=== PATIENT | male | born 1960 | race Caucasian/White ===

== ENCOUNTER → 2016-12-22 | Outpatient (CLI) | payer BC ==
[2016-12-22 14:09] LABS: ALT/SGPT 41 U/L (12-78); BLOOD UREA NITROGEN 11 mg/dl (7-18); BUN/CREATININE RATIO 9.7 (10-20); CALCIUM 8.9 mg/dl (8.5-10.1); CARBON DIOXIDE 25 mmol/L (21-32); CHLORIDE 104 mmol/L (98-107); CHOLESTEROL 205 mg/dl (0-200); GLUCOSE 92 mg/dl (70-99); POTASSIUM 4.1 mmol/L (3.5-5.1); SODIUM 140 mmol/L (136-145)
[2016-12-22 14:13] LABS: ALB/GLOB RATIO 1.3 (0.9-2); ALKALINE PHOSPHATASE 70 U/L (45-117); AST/SGOT 32 U/L (15-37); CHOLESTEROL/HDL RATIO 3.2; HDL CHOLESTEROL 64 mg/dl; LDL CHOLESTEROL CALCULATED 114 mg/dl; TRIGLYCERIDES 136 mg/dl (0-150); VERY LOW DENSITY LIPOPROT CALC 27 mg/dl
--- NOTE | 2017-01-20 10:02 | CODING QUERY MEDICAL NECESSITY ---
CQSUPPORTING DIAGNOSIS NEEDED A supporting diagnosis is required for the test/procedure performed on this patient in order for us to be reimbursed by the patient's insurance. Please provide a supporting diagnosis for the following test/procedure listed below next to the test name along with your signature. *If there is no additional diagnosis for this patient that would support the following test/procedure please document that below next to the test/procedure. Test(s)/Procedure(s) that require a supporting diagnosis: DOS 12/22/16 PROSTATE SPECFIC TEST (PSA) Provider Signature: Date: Thank you Maggi Moya Health Information Management Once completed, please kindly fax back to [phone] For questions please call [phone]
== END | disposition home or self-care (01) ==
LOC: C.LABPVFM 08:31
PROVIDERS: ATTEND Family Medicine
DX: Z00.00 Encounter for general adult medical examination without abnormal findings (principal); I48.91 Unspecified atrial fibrillation; Z72.0 Tobacco use; E78.5 Hyperlipidemia, unspecified; R73.9 Hyperglycemia, unspecified; Z12.5 Encounter for screening for malignant neoplasm of prostate

== ENCOUNTER → 2018-06-28 | Outpatient (CLI) | payer BC ==
[2018-06-28 13:47] LABS: ALBUMIN 4.1 gm/dl (3.4-5.0); ALKALINE PHOSPHATASE 72 U/L (45-117); ALT/SGPT 40 U/L (12-78); AST/SGOT 34 U/L (15-37); BLOOD UREA NITROGEN 10 mg/dl (7-18); CALCIUM 9.2 mg/dl (8.5-10.1); CARBON DIOXIDE 29 mmol/L (21-32); CHOLESTEROL 174 mg/dl (0-200); CREATININE 0.98 mg/dl (0.60-1.40); GLUCOSE 90 mg/dl (70-99); LDL CHOLESTEROL CALCULATED 86 mg/dl; POTASSIUM 4.3 mmol/L (3.5-5.1); SODIUM 138 mmol/L (136-145); TOTAL PROTEIN 7.1 gm/dl (6.4-8.2)
== END | disposition home or self-care (01) ==
LOC: C.LABPVFM 07:47
PROVIDERS: ATTEND Family Medicine
DX: I48.91 Unspecified atrial fibrillation (principal); E78.5 Hyperlipidemia, unspecified; R73.9 Hyperglycemia, unspecified; R60.9 Edema, unspecified

== ENCOUNTER 2022-11-07 13:08 | Inpatient (IN) ==
[2022-11-07 13:39] LABS: Basophils # (auto) 0.04 K/uL (0-0.2); Basophils % (auto) 0.5 %; Eosinophils # (auto) 0.01 K/uL (0-0.50); Eosinophils % (auto) 0.1 %; Hematocrit (blood only) 40.7 % (40.1-51.0); Hemoglobin 13.9 g/dl (14.0-18.0); Immature Granulocytes # (auto) 0.04 K/uL (0.00-0.02); Immature Granulocytes % (auto) 0.5 %; Lymphocytes # (auto) 0.76 K/uL (1.2-3.4); Mean Corpuscular Hemoglobin 31.7 pg (25.0-34.0); Mean Corpuscular Hgb Conc 34.2 g/dL (32.0-36.0); Mean Corpuscular Volume 92.9 fL (80.0-100.0); Mean Platelet Volume 10.7 fL (9.4-12.4); Monocytes # (auto) 0.72 K/uL (0.24-0.82); Monocytes % (auto) 8.5 %; Neutrophils # (auto) 6.87 K/uL (1.4-6.5); Neutrophils % (auto) 81.4 %; Platelet Count 169 K/uL (130-400); RDW Coefficient of Variation 13.4 % (11.5-14.5); RDW Standard Deviation 45.5 fL (36.4-46.3); Red Blood Count 4.38 M/uL (4.63-6.08); White Blood Count 8.44 K/ul (4.8-10.8)
[2022-11-07 13:53] LABS: INR 1.5 (0.9-1.1); Partial Thromboplastin Ratio 1.3; Partial Thromboplastin Time 35.6 Seconds (21.0-31.0); Prothrombin Time 15.2 Seconds (9.0-12.0)
[2022-11-07 14:03] LABS: Albumin Globulin Ratio 1.8 (0.9-2); Albumin Level 4.5 gm/dl (3.4-5.0); BUN Creatinine Ratio 12.8 (10-20); Bilirubin,Total 2.7 mg/dl (0.2-1.0); Calcium 9.4 mg/dl (8.5-10.1); Creatinine Clr Calc Pharmacy 107.4 ml/min; Est GFR (African American) 112.9 ml/min; Est GFR (Non-African American) 97.4 ml/min; Globulin 2.5 gm/dl (2.5-4.0); Magnesium 1.8 mg/dl (1.7-2.4)
--- NOTE | 2022-11-07 14:09 | XRay Report ---
XR chest 1V not portable CLINICAL HISTORY: SOB TECHNIQUE: Single frontal radiograph of the chest was obtained. Comparison: Comparison is made to chest radiograph 08/26/2022 FINDINGS: No lines and tubes are seen. Cardiomegaly is noted. The lungs are clear. No evidence of pleural effus ion or pneumothorax. IMPRESSION: No acute abnormalities and in particular no evidence of pneumonia. ACT 112: Negative or not required by law. Electronically signed by: Eduar Mcelroy M.D. 11/07/2022 2:07 PM
[2022-11-07] MEDS ORDERED: FUROSEMIDE 40 MG/4 ML VIAL IV STA (14:20)
--- NOTE | 2022-11-07 14:27 | Emergency Department Note ---
Impression & Plan CHF (congestive heart failure), Atrial fibrillation, Edema, pitting, Elevated troponin ED Provider Note NAME: BRODY BOYLE AGE: 61 SEX: M : 1960 ARRIVES VIA: Walk-In INFORMANT: Patient ED PROVIDER(S): Ankur Jones DO CHIEF COMPLAINT: shortness of breath HPI: Patient is a 61-year-old male who presents to the ER for shortness of breath. Patient has a history of A. fib, hyperlipidemia, TIA and vitamin D. He notes the shortness of breath has been gradually getting worse since this past August. He has been on Lasix since this past January. He notes the swelling has been getting worse in the legs and is now up into his belly. He is getting sli ghtly more short of breath. Denies any headache or change in vision. No chest pain. No belly pain but notes that he has swelling in his legs that has come up to his belly. No dysuria, urgency, or frequency. Notes he is eating and drinking normally. He has had a little bit of a less of an appetite since hernia surgery in August. ROS: See above HPI for pertinent positives & negatives. A total of 10 systems reviewed and were otherwise negative. PAST MEDICAL HISTORY:See Below PAST SURGICAL HISTORY:See Below FAMILY HISTORY:See Below SOCIAL HISTORY:See Below HOME MEDICATIONS:See Below ALLERGIES:See Below VITALS:See Below PHYSICAL EXAMINATION: GENERAL: Sitting up in bed, alert, well appearing, well nourished, no distress, non-toxic EYE EXAM: normal conjunctiva. OROPHARYNX: no exudate, no erythema, lips, buccal mucosa, and tongue normal and mucous membranes are moist NECK: +JVD LUNGS: Clear to auscultation. Normal chest wall mechanics HEART: no murmurs, S1 normal and S2 normal ABDOMEN: abdomen soft, non-tender, normo-active bowel sounds, no masses, no rebound or guarding. UPPER EXTREMITIES: upper extremities are grossly normal. LOWER EXTREMITIES: Pitting edema in the bilateral lower extremities tracking up to the abdomen NEURO EXAM: Normal sensorium, cranial nerves II-XII grossly intact, normal speech, no gross weakness of arms, no gross weakness of legs. MEDICAL DECISION MAKING: Patient is a 61-year-old male who presents ER for shortness of breath. IV was established blood was obtained. Labs show no significant leukocytosis. No anemia. INR at 1.5. BMP with mild help with a mild hyponatremia at 131. T bili up at 2.7. No significant transaminitis. Troponin elevated 24. BNP elevated at 530. Chest x-ray was clean. COVID was negative. With bilateral pitting edema tracking up to the pelvis, elevated BNP, positive troponin, posit марина JVD this is all consistent with CHF. Discussed with the patient in regards to admission. He was given Lasix. Discussed with Dr. Rogelio Pedersen for further evaluation. Triage Nursing notes reviewed. Limited review of prior medical records performed Vital Signs: reviewed and remarkable for no significant abnormalities Differential diagnosis: Reactive airway disease, pneumonia, pneumothorax, COPD, CHF, infections, cardiac ischemia, pulmonary embolism, musculoskeletal, gastrointestinal, as well as other pathologies. ER treatment provided: See below Diagnostics interpreted by me: ECG: A. fib rate of 78 Left axis T wave inversions in the high lateral leads T wave inversions in V4 through V6 No significant change from previous in the lateral leads. Atrial flutter has replaced A. fib. Cardiac Monitoring: An order was placed for continuous cardiac monitoring. The monitor shows a rate of 82 with sinus rhythm. Laboratory studies: As stated above and show below. Imaging studies: Portable AP upright 1 view of the chest unremarkable Consultation(s): Discussed with [facility]ist for further evaluation Procedures: none Critical Care: None Past Med/Surg History Medical History (Updated 11/07/22 @ 20:17 by Ankur Jones DO) Atrial fibrillation on eliquis -- follows with Dr. Canseco History of COVID-19 09/2020, not tested; loss taste/smell, fatigue>resolved. History of inguinal hernia left History of umbilical hernia Stroke "MILD STROKE" 10 YEARS AGO - no residual effects Surgical History (Updated 08/26/22 @ 11:28 by Shelley Du RN) H/O umbilical hernia repair (08/26/22) p Open Left Inguinal Hernia Repair with Mesh - Porfirio Pierre DO s Open Umbilical Hernia Repair - Porfirio Pierre DO History of colonoscopy History of herniorrhaphy ABDOMINAL HERNIA Hx of LASIK S/P left inguinal hernia repair (08/26/22) p Open Left Inguinal Hernia Repair with Mesh - Porfirio Pierre DO s Open Umbilical Hernia Repair - Porfirio Pierre DO Family History Father Myocardial infarction Cancer Colorectal cancer Mother Diabetes Family history of diabetes mellitus Denies family history of Ovarian cancer Prostate cancer Breast cancer Social History (Updated 08/06/22 @ 11:28 by Shelley Du, MICKI) Smoking Status: Former smoker Tobacco Type: Cigarettes Cigarettes Per Day: 3-4 per day; Second Hand Exposure: No; Hx Alcohol Use: Yes Alcohol type: beer Alcohol Intake Frequency: 4 or More x per/Week Alcohol Intake Frequency Comment: 3/day Hx Substance Use: No Preferred Language: Yemeni Communication Ability: Effective Supervisor [employer] Required: No Beliefs That Will Affect Care: None marital status: Current Living Situation: Spouse and Family current occupational status: employed current occupation: [employer] How many Children do You have: 1 Feels Safe at Home: Yes caffeine: No Dental Care, Regularly: Yes Physical Activity Frequency: 1-2 Times per Week Seatbelt Use: always Sunscreen Use: No Assistive Devices: Glasses Allergies Allergies Allergy/AdvReac Type Severity Reaction Status Date / Time No Known Allergies Allergy Verified 11/07/22 16:32 Home Meds Home Medications Medication Instructions Recorded Confirmed cholecalciferol (vitamin D3) 125 125 mcg PO QAM 07/31/20 11/07/22 mcg (5,000 unit) tablet (Vitamin D3) krill oil 500 mg capsule 500 mg PO QAM 07/31/20 11/07/22 Prostate Supplement 2 tabs PO HS 01/02/22 11/07/22 apixaban 5 mg tablet (Eliquis) 5 mg PO BID 11/07/22 11/07/22 Previous Rx's Medication Instructions Recorded furosemide 20 mg tablet 20 mg PO QAM PRN Edema #30 tabs 08/19/22 Results & Data (ED) Vital Signs Vital Signs - 24 hr 11/07/22 13:13 11/07/22 14:40 11/07/22 14:40 Temperature 36.5 C Temperature Source Temporal Artery Scan Pulse Rate 87 72 Pulse Rate from SpO2 Sensor Pulse Rhythm Respiratory Rate 18 18 Respiratory Effort / Characteristics Non-Labored Spontaneous Respiratory Depth Normal Respiratory Pattern Regular Blood Pressure 145/89 H 127/85 127/85 Blood Pressure Mean 107 99 99 Blood Pressure Position Sitting Pulse Oximetry 95 94 Oxygen Delivery Method Room Air Sepsis Recent Fever Within 48 Hours No Sepsis New/Unexplained Change in Mental Status N/A Sepsis Action Taken by Nursing No Action Required 11/07/22 14:40 11/07/22 15:00 11/07/22 15:00 Temperature Temperature Source Pulse Rate 75 77 Pulse Rate from SpO2 Sensor 74 81 Pulse Rhythm Respiratory Rate 19 14 Respiratory Effort / Characteristics Respiratory Depth Respiratory Pattern Blood Pressure 136/97 Blood Pressure Mean 110 Blood Pressure Position Pulse Oximetry 95 98 Oxygen Delivery Method Room Air Sepsis Recent Fever Within 48 Hours Sepsis New/Unexplained Change in Mental Status Sepsis Action Taken by Nursing 11/07/22 15:30 11/07/22 15:31 11/07/22 15:31 Temperature Temperature Source Pulse Rate 81 73 Pulse Rate from SpO2 Sensor 87 76 Pulse Rhythm Respiratory Rate 23 16 Respiratory Effort / Characteristics Respiratory Depth Respiratory Pattern Blood Pressure 111/96 Blood Pressure Mean 101 Blood Pressure Position Pulse Oximetry 95 94 Oxygen Delivery Method Room Air Room Air Sepsis Recent Fever Within 48 Hours Sepsis New/Unexplained Change in Mental Status Sepsis Action Taken by Nursing 11/07/22 16:00 11/07/22 16:01 11/07/22 16:01 Temperature Temperature Source Pulse Rate 77 77 Pulse Rate from SpO2 Sensor 76 86 Pulse Rhythm Respiratory Rate 26 H 23 Respiratory Effort / Characteristics Respiratory Depth Respiratory Pattern Blood Pressure 149/79 H Blood Pressure Mean 102 Blood Pressure Position Pulse Oximetry 95 93 Oxygen Delivery Method Room Air Room Air Sepsis Recent Fever Within 48 Hours Sepsis New/Unexplained Change in Mental Status Sepsis Action Taken by Nursing 11/07/22 16:21 11/07/22 16:22 Temperature Temperature Source Pulse Rate 81 Pulse Rate from SpO2 Sensor Pulse Rhythm Regular Respiratory Rate 20 18 Respiratory Effort / Characteristics Non-Labored Spontaneous Respiratory Depth Respiratory Pattern Blood Pressure Blood Pressure Mean Blood Pressure Position Pulse Oximetry 96 95 Oxygen Delivery Method Room Air Room Air Sepsis Recent Fever Within 48 Hours Sepsis New/Unexplained Change in Mental Status Sepsis Action Taken by Nursing Laboratory Data Result diagrams: 11/07/22 13:27 11/07/22 13:27 Lab Results 11/07/22 11/07/22 11/07/22 Range/Units 13:27 13:27 13:27 WBC 8.44 (4.8-10.8) K/ul RBC 4.38 L (4.63-6.08) M/uL Hgb 13.9 L (14.0-18.0) g/dl Hct 40.7 (40.1-51.0) % MCV 92.9 (80.0-100.0) fL MCH 31.7 (25.0-34.0) pg MCHC 34.2 (32.0-36.0) g/dL RDW Std Deviation 45.5 (36.4-46.3) fL RDW Coeff of Nolberto 13.4 (11.5-14.5) % Plt Count 169 (130-400) K/uL MPV 10.7 (9.4-12.4) fL Immature Gran % (Auto) 0.5 % Neut % (Auto) 81.4 % Lymph % (Auto) 9.0 % [place] % (Auto) 8.5 % Eos % (Auto) 0.1 % Baso % (Auto) 0.5 % Neut # (Auto) 6.87 H (1.4-6.5) K/uL Lymph # (Auto) 0.76 L (1.2-3.4) K/uL [place] # (Auto) 0.72 (0.24-0.82) K/uL Eos # (Auto) 0.01 (0-0.50) K/uL Baso # (Auto) 0.04 (0-0.2) K/uL Immature Gran # (Auto) 0.04 H (0.00-0.02) K/uL PT 15.2 H (9.0-12.0) Seconds INR 1.5 H (0.9-1.1) APTT 35.6 H (21.0-31.0) Seconds PTT Ratio 1.3 Sodium 131 L (136-145) mmol/L Potassium 4.0 (3.5-5.1) mmol/L Chloride 93 L (98-107) mmol/L Carbon Dioxide 30 (21-32) mmol/L Anion Gap 8 (3-11) BUN 10 (6-23) mg/dl Creatinine 0.78 (0.6-1.4) mg/dl Est Cr Clr Drug Dosing 107.4 ml/min Est GFR ( Amer) 112.9 ml/min Est GFR (Non-Af Amer) 97.4 ml/min BUN/Creatinine Ratio 12.8 (10-20) Glucose 99 (70-99(Fasting)) mg/dl Calcium 9.4 (8.5-10.1) mg/dl Magnesium 1.8 (1.7-2.4) mg/dl Total Bilirubin 2.7 H (0.2-1.0) mg/dl AST 47 H (13-39) U/L ALT 29 (7-52) U/L Alkaline Phosphatase 118 H (34-104) U/L Troponin I High Sens (0-20) pg/ml B-Natriuretic Peptide (0-100) pg/ml Total Protein 7.0 (6.0-8.3) gm/dl Albumin 4.5 (3.4-5.0) gm/dl Globulin 2.5 (2.5-4.0) gm/dl Albumin/Globulin Ratio 1.8 (0.9-2) SARS-CoV-2, RNA, NAAT (NEGATIVE) 11/07/22 11/07/22 11/07/22 Range/Units 13:27 14:35 16:11 WBC (4.8-10.8) K/ul RBC (4.63-6.08) M/uL Hgb (14.0-18.0) g/dl Hct (40.1-51.0) % MCV (80.0-100.0) fL MCH (25.0-34.0) pg MCHC (32.0-36.0) g/dL RDW Std Deviation (36.4-46.3) fL RDW Coeff of Nolberto (11.5-14.5) % Plt Count (130-400) K/uL MPV (9.4-12.4) fL Immature Gran % (Auto) % Neut % (Auto) % Lymph % (Auto) % [place] % (Auto) % Eos % (Auto) % Baso % (Auto) % Neut # (Auto) (1.4-6.5) K/uL Lymph # (Auto) (1.2-3.4) K/uL [place] # (Auto) (0.24-0.82) K/uL Eos # (Auto) (0-0.50) K/uL Baso # (Auto) (0-0.2) K/uL Immature Gran # (Auto) (0.00-0.02) K/uL PT (9.0-12.0) Seconds INR (0.9-1.1) APTT (21.0-31.0) Seconds PTT Ratio Sodium (136-145) mmol/L Potassium (3.5-5.1) mmol/L Chloride (98-107) mmol/L Carbon Dioxide (21-32) mmol/L Anion Gap (3-11) BUN (6-23) mg/dl Creatinine (0.6-1.4) mg/dl Est Cr Clr Drug Dosing ml/min Est GFR ( Amer) ml/min Est GFR (Non-Af Amer) ml/min BUN/Creatinine Ratio (10-20) Glucose (70-99(Fasting)) mg/dl Calcium (8.5-10.1) mg/dl Magnesium (1.7-2.4) mg/dl Total Bilirubin (0.2-1.0) mg/dl AST (13-39) U/L ALT (7-52) U/L Alkaline Phosphatase (34-104) U/L Troponin I High Sens 24.0 H (0-20) pg/ml B-Natriuretic Peptide 531 H (0-100) pg/ml Total Protein (6.0-8.3) gm/dl Albumin (3.4-5.0) gm/dl Globulin (2.5-4.0) gm/dl Albumin/Globulin Ratio (0.9-2) SARS-CoV-2, RNA, NAAT NEGATIVE (NEGATIVE) Administered Medications Furosemide (Furosemide 40 Mg/4 Ml Vial) 40 mg IV ONE ONE Stop: 11/07/22 21:01 Last Admin: 11/07/22 20:07 Dose: 40 mg Documented By: CELINA Discontinued Medications Furosemide (Furosemide 40 Mg/4 Ml Vial) 40 mg IV NOW STA Stop: 11/07/22 14:21 Last Admin: 11/07/22 14:33 Dose: 40 mg Documented By: GUERA Thiamine HCl 100 mg/ Syringe 10 mls @ 2 mls/min IV NOW STA Stop: 11/07/22 19:28 Last Admin: 11/07/22 20:07 Dose: 2 mls/min Documented By: CELINA Imaging Data Radiologist's Impression: Chest X-Ray 11/07/22 13:18 XR chest 1V not portable CLINICAL HISTORY: SOB TECHNIQUE: Single frontal radiograph of the chest was obtained. Comparison: Comparison is made to chest radiograph 08/26/2022 FINDINGS: No lines and tubes are seen. Cardiomegaly is noted. The lungs are clear. No evidence of pleural effusion or pneumothorax. IMPRESSION: No acute abnormalities and in particular no evidence of pneumonia. ACT 112: Negative or not required by law. Electronically signed by: Eduar Mcelroy M.D. 11/07/2022 2:07 PM Discharge Plan Visit Data Chief Complaint: Swelling/Edema to Extremity Stated Complaint: UPPER RESPIRATORY CONGESTION, EDEMA ABD ED Provider: Ankur Jones Discharge Problem: CHF (congestive heart failure), Atrial fibrillation, Edema, pitting, Elevated troponin Patient Disposition: Admitted As Inpatient Discharge Instructions Interventions: ED Discharge Assessment Last Done: 11/07/22 19:13
--- NOTE | 2022-11-07 16:44 | History & Physical Report ---
Date of Service November 07, 2022 Assessment & Plan (1) Elevated troponin: Plan: Patient is an elevated troponin without evidence of chest pain movement with associated dyspnea. We will check his troponin. He has not had an echocardiogram since 2020 at which time he had normal systolic function normal right ventricular function and no mention of pulmonary hypertension. Will start an aspirin get additional troponins have been progressive care unit (2) Swelling of lower extremity: Plan: Pt has b/l LE swelling worsened since inguinal hernia surgery, VTE less likely as is on ch eliquis clinically has a dull firm abd, ? ascites, does use alcohol habitually, but does not have withdrawal sx when stops intermittently LFTs not significantly abnormal bilirubin is up but AST is slightly elevated ALT is normal, INR is 1.5 could this be alcoholic liver disease with ascites? Patient has normal protein and albumin will have Abd/pelvis CT to eval liver ascites, and surgery pt also has had polyps removed at last 2 colonoscopies (3) Atrial fibrillation: Plan: afib not on rate controlling meds, on chronic anticoagulation Patient cannot sense his A. fib rate he typically is not tachycardic it would be expected if he had systolic dysfunction from rapid A. fib at home he would have pulmonary edema which he does not (4) History of TIA (transient ischemic attack): Plan: reportedly 10 years ago, no residual defects this is when he found his atrial fibrillation (5) Alcohol ingestion, more than 4 drinks/day: Plan: Patient typically has 4 beers a day occasionally skipping a day not having shakes. These are craft beers of high alcohol content usually. He does not feel this is a problem for him. We will begin him on thiamine orally Patient is elevated bilirubin mildly elevated AST and elevated INR (possible coagulopathy of alcohol use) this could all be attributed to his alcohol use. We will trend these laboratory studies begin him on vitamin therapy CT scan is pending to evaluate the appearance of his liver Plan Eliquis will be used History of Present Illness Primary Care Provider: Jerad Martinez, 61-M presents to the ER for GORMAN and LE swelling . Patient has a history of A. fib, hyperlipidemia, recent hernia repair (09/06). He notes shortness of breath has been gradually getting worse since this past August. He has been on Lasix prn since this past January. He notes the swelling has been getting worse in the legs and is now up into his belly. He is getting slightly more short of breath. Denies any headache or change in vision. No chest pain. No belly pain but notes that he has swelling in his legs that has come up to his belly. No dysuria urgency or frequency. Notes he is eating and drinking normally. He has had a little bit of a less of an appetite since hernia surgery in August. In the ER he is found to have a troponin of 24 (normal is 20, and a proBNP of 500s normal 0-100 is given 40 of Lasix in the ER. Patient does not have heart failure changes on his chest x-ray his last echocardiogram did not have evidence of diastolic dysfunction or pulmonary hypertension. Viral testing negative in the ER Allergies Allergy/AdvReac Type Severity Reaction Status Date / Time No Known Allergies Allergy Verified 11/07/22 16:32 Home Medications Medication Instructions Recorded Confirmed Type cholecalciferol (vitamin D3) 125 125 mcg PO QAM 07/31/20 11/07/22 History mcg (5,000 unit) tablet (Vitamin D3) krill oil 500 mg capsule 500 mg PO QAM 07/31/20 11/07/22 History Prostate Supplement 2 tabs PO HS 01/02/22 11/07/22 History furosemide 20 mg tablet 20 mg PO QAM PRN Edema #30 tabs 08/19/22 11/07/22 Rx apixaban 5 mg tablet (Eliquis) 5 mg PO BID 11/07/22 11/07/22 History Past Med/Surg History Medical History (Updated 11/07/22 @ 16:38 by Rogelio Rangel MD) Atrial fibrillation on eliquis -- follows with Dr. Canseco History of COVID-19 09/2020, not tested; loss taste/smell, fatigue>resolved. History of inguinal hernia left History of umbilical hernia Stroke "MILD STROKE" 10 YEARS AGO - no residual effects Surgical History (Updated 08/26/22 @ 11:28 by Shelley Du RN) H/O umbilical hernia repair (08/26/22) p Open Left Inguinal Hernia Repair with Mesh - Porfirio Pierre DO s Open Umbilical Hernia Repair - Porfirio Pierre DO History of colonoscopy History of herniorrhaphy ABDOMINAL HERNIA Hx of LASIK S/P left inguinal hernia repair (08/26/22) p Open Left Inguinal Hernia Repair with Mesh - Porfirio Pierre DO s Open Umbilical Hernia Repair - Porfirio Pierre DO Family History Father Myocardial infarction Cancer Colorectal cancer Mother Diabetes Family history of diabetes mellitus Denies family history of Ovarian cancer Prostate cancer Breast cancer Social History (Updated 08/06/22 @ 11:28 by Shelley Du RN) Smoking Status: Former smoker Tobacco Type: Cigarettes Cigarettes Per Day: 3-4 per day; Second Hand Exposure: No; Hx Alcohol Use: Yes Alcohol type: beer Alcohol Intake Frequency: 4 or More x per/Week Alcohol Intake Frequency Comment: 3/day Hx Substance Use: No Preferred Language: Macanese Communication Ability: Effective Butane Compressor Operator Required: No Beliefs That Will Affect Care: None marital status: Current Living Situation: Spouse and Family current occupational status: employed current occupation: [employer] How many Children do You have: 1 Feels Safe at Home: Yes caffeine: No Dental Care, Regularly: Yes Physical Activity Frequency: 1-2 Times per Week Seatbelt Use: always Sunscreen Use: No Assistive Devices: Glasses Review of Systems Review of Systems: Mild distress and worsening fatigue no headache, no visual changes no speech or swallowing issues no chest pain, pressure or palpitations, pt cannot sense afib worsening exertional shortness of breath, no cough or wheezes no abdominal pain, nausea or vomiting, increasing distention recent change in stool habits no dysuria, hematuria or frequency no focal joint pain or swelling no back pain, CVA tenderness or radicular pain no bruising, bleeding or rashes no focal signs of weakness or numbness or altered sensation no complaints of anxiety or depression.. Physical Exam Physical Exam: The patient appeared well nourished and normally developed. Vital signs as documented. Head exam is normocephalic atraumatic Neck is without JVD, thyromegaly, or carotid bruits. Lungs are clear to auscultation, no focal loss of breath sounds Cardiac exam, Rhythm is irregular but rate controlled, no murmurs, rubs or gallops. Abdominal exam reveals normal bowel sounds distended dull sensation of ascites no organomegaly Extremities are 2+ edema bilaterally to the mid thighs Neurologic exam is alert and oriented, no focal loss of strength or sensation Skin is without bruises or rashes some redness to his lower extremities but no stasis dermatitis at this point Psychologically is without concerns for anxiety or depression.. Results & Data Results & Data ([facility]) Vital Signs (Past 12 Hours) Vital Signs Temp Pulse Resp BP Pulse Ox O2 Del Method 11/07/22 16:22 81 18 95 Room Air 11/07/22 16:21 20 96 Room Air 11/07/22 16:01 149/79 H 11/07/22 16:01 77 23 93 Room Air 11/07/22 16:00 77 26 H 95 Room Air 11/07/22 15:31 73 16 94 Room Air 11/07/22 15:31 111/96 11/07/22 15:30 81 23 95 Room Air 11/07/22 15:00 77 14 98 Room Air 11/07/22 15:00 136/97 11/07/22 14:40 75 19 95 11/07/22 14:40 127/85 11/07/22 14:40 72 18 127/85 94 11/07/22 13:13 97.7 F 87 18 145/89 H 95 Room Air Diagnostic Findings Chest X-Ray 11/07/22 13:18 XR chest 1V not portable CLINICAL HISTORY: SOB TECHNIQUE: Single frontal radiograph of the chest was obtained. Comparison: Comparison is made to chest radiograph 08/26/2022 FINDINGS: No lines and tubes are seen. Cardiomegaly is noted. The lungs are clear. No evidence of pleural effusion or pneumothorax. IMPRESSION: No acute abnormalities and in particular no evidence of pneumonia. Electronically signed by: Eduar Mcelroy M.D. 11/07/2022 2:07 PM ECG Additional Comments: A. fib controlled ventricular rate Code Status & VTE Plan VTE Prophylaxis Plan VTE Prophylaxis will be ordered: Yes PG Care Time/CCT Total # of Minutes Spent Total Time Spent with Patient: Total time spent is greater than 50% in coordination of care (as documented) at patient's floor/unit and/or counseling patient: Coding Level of Care Code 31976 Initial Inpt Care Lvl 3 Diagnoses Elevated troponin R77.8 Swelling of lower extremity M79.89 Atrial fibrillation I48.91 History of TIA (transient ischemic attack) Z86.73 Alcohol ingestion, more than 4 drinks/day Z78.9
[2022-11-07] MEDS ORDERED: ALUMINUM/MAGNESIUM SUSP 30 ML UDC PO PRN (19:24)
[2022-11-07] MEDS ORDERED: THIAMINE HCL 100 MG in SYRINGE 9 ML IV STA (19:24)
[2022-11-07] MEDS ORDERED: ENOXAPARIN INJ 40 MG/0.4 ML SYR SQ SCH (19:24)
[2022-11-07] MEDS ORDERED: ONDANSETRON INJ 2 MG/ML 2 ML VIAL IV PRN (19:24)
[2022-11-07] MEDS ORDERED: ACETAMINOPHEN 325 MG TAB PO PRN (19:24)
[2022-11-07] MEDS ORDERED: FUROSEMIDE 40 MG/4 ML VIAL IV ONE (21:00)
[2022-11-07] MEDS ORDERED: OPTIRAY 350 100ml IV ONE (22:18)
[2022-11-08] MEDS ORDERED: guaiFENesin 600 MG TABCR PO PRN (06:10)
[2022-11-08 06:52] LABS: Hematocrit (blood only) 37.3 % (40.1-51.0); Hemoglobin 13.2 g/dl (14.0-18.0); Mean Corpuscular Hemoglobin 31.9 pg (25.0-34.0); Mean Corpuscular Hgb Conc 35.4 g/dL (32.0-36.0); Mean Corpuscular Volume 90.1 fL (80.0-100.0); Platelet Count 157 K/uL (130-400); RDW Coefficient of Variation 13.3 % (11.5-14.5); RDW Standard Deviation 44.2 fL (36.4-46.3); Red Blood Count 4.14 M/uL (4.63-6.08)
[2022-11-08 07:10] LABS: INR 1.4 (0.9-1.1); Prothrombin Time 14.2 Seconds (9.0-12.0)
--- NOTE | 2022-11-08 07:18 | Electrocardiogram Report ---
Test Reason : Blood Pressure : / mmHG Vent. Rate : 078 BPM Atrial Rate : 288 BPM P-R Int : 000 ms QRS Dur : 094 ms QT Int : 432 ms P-R-T Axes : 000 -37 175 degrees QTc Int : 492 ms Atrial fibrillation Left axis deviation Low voltage QRS T wave abnormality, consider anterolateral ischemia Prolonged QT Abnormal ECG When compared with ECG of 06-AUG-2022 11:26, Atrial fibrillation has replaced Atrial flutter Confirmed by Alen Sexton ([id number]) on 11/08/2022 7:18:10 AM Referred By: REFERRED SELF Confirmed By:Alen Sexton
[2022-11-08 07:21] LABS: Albumin Globulin Ratio 1.8 (0.9-2); Albumin Level 4.2 gm/dl (3.4-5.0); BUN Creatinine Ratio 14.1 (10-20); Bilirubin,Total 2.2 mg/dl (0.2-1.0); Calcium 8.7 mg/dl (8.5-10.1); Creatinine Clr Calc Pharmacy 115.9 ml/min; Est GFR (African American) 117.4 ml/min; Est GFR (Non-African American) 101.3 ml/min; Globulin 2.3 gm/dl (2.5-4.0); Magnesium 1.7 mg/dl (1.7-2.4); Potassium 3.3 mmol/L (3.5-5.1); Total Protein 6.5 gm/dl (6.0-8.3)
[2022-11-08 07:25] LABS: Troponin I High Sensitivity 27.8 pg/ml (0-20)
[2022-11-08] MEDS: ASPIRIN 81 MG ECTAB PO SCH (08:07)
[2022-11-08] MEDS: CHOLECALCIFEROL 5,000 UNITS 125 MCG TAB PO SCH (08:07)
[2022-11-08] MEDS: THIAMINE HCL 100 MG TAB PO SCH (08:07)
--- NOTE | 2022-11-08 08:07 | Hospitalist Progress Note ---
Date of Service November 08, 2022 Assessment & Plan (1) Elevated troponin: Plan: Admitted for progressive shortness of breath over the past couple of weeks, worse in August Of note, had been started on daily lasix 20mg PO by cardiology for LE edema earlier in year, also unaware of low salt diet BNP 500s Elevated troponin 24--> 26.5--? 27.8--> 25.6 Given lasix 40mg IV x 2 on 11/07 (on 20mg PO daily at home) K 3.3, Mag 1.7 -- given afib, given 40meq PO x 1, can given additional dose tonight. 1gm mag -- ?if on any K supplementation at home but appears not ECHO: LV is normal in size. There is mild concentric LVH. LV systolic function is low normal. EF 50-55%. LV wall motion is normal. Flattened septum consistent with RV pressure overload. RV is severely dilated. Although TAPSE is normal, RV free wall appears hypokinetic. LA/RA severely dilated. Aortic valve sclerosis mild, without significant aortic valvular stenosis. Mild to moderate AR. Mod TR. Severe pulmonary HTN with estimated pulmonary artery pressure 65mmHg. HFpEF, combination salt intake/cirrhosis/alcohol use Scheduled lasix 20mg IV BID, also consulted cardiology given patient w/ increased abdominal fullness/edema and continues 2+ b/l edema (however note cirrhosis as below, also weight UP from when started lasix) plan for CHF f/u as well, low salt diet. will add fluid restriction as well pending course Eliquis resumed, no plans for cath Discussed with Dr Arzate possible switch to torsemide vs addition of spironolactone given cirrhosis/abd fullness /tight pants reported --> started spironolactone 25mg daily (should also help with hypokalemia as well) CTAP on admit w/ Moderately nodular contour of the liver compatible with cirrhosis. Moderate ascites is seen. The portal vein remains patent and no pr ominent variceal disease is seen-- does endorse 3-4 craft beers daily. WILL NEED COUNSELING as well as GI f/u outpatient for screening purposes, no bleeding reported Admitted to overnight team on admit he drinks 3-4 beers daily, no issues when stopping. B12 already added to AM labs but will check folate as well. On thiamine replacement (2) Swelling of lower extremity: Plan: Reported since , seen cards and placed on lasix 20mg PO daily w/o K supplementation Progressive LE edema On eliquis, no evidence for DVT on exam AST slightly bumped, reports etoh use Scheduled lasix 20mg IV BID for now, added aldactone daily. Need f/u cirrhosis. Albumin is NORMAL. Has had c-scope in past -- will need f/u GI at d/c Monitor I&O, daily weights (3) Atrial fibrillation: Plan: fib/flutter, no on rate controlling agent Afib/flutter rates 70-80s on monitor. No significant reduction in EF to suspect tachycardia induced Keep K ~2, Mag ~2 -- see above On eliquis at home -- resumed as no plans for cath Monitor on telemetry (4) History of TIA (transient ischemic attack): Plan: reportedly 10 years ago, no residual defects this is when he found his atrial fibrillation Remains on ASA 81mg daily (5) Alcohol ingestion, more than 4 drinks/day: Plan: Patient typically has 4 beers a day occasionally skipping a day not having shakes. These are craft beers of high alcohol content usually. He does not feel this is a problem for him. We will begin him on thiamine orally Patient is elevated bilirubin mildly elevated AST and elevated INR (possible coagulopathy of alcohol use) this could all be attributed to his alcohol use. CTAP on admit w/ cirrhosis, mod ascites (reported increased abd fullness/pants fitting tighter) Lasix increased to 20mg IV BID, added aldactone as above -- further titrations as able Check B12/folate w/ labs in AM Will need counseling/GI follow up at d/c Plan continued inpatient stay increased lasix to 20mg IV BID, aldactone ordered 25mg daily cards on consult rec low salt diet/follow up CHF clinic with close monitoring of labs this week if patient to dc tomorrow Will also need GI f/u given cirrhosis, encourage limiting/cessation from alcohol Admission and Anticipated Discharge Date Admission Date: November 07, 2022 Supervising Physician Co-Signing Physician Notes PA Supervision Note: I did not personally see or examine the patient today, but I verified all morales points of WANDA Gonzalez's assessment and plan with the following exceptions/additions: None Subjective eval this morning, states he feels good. making lots of urine w/ IV lasix. He notes having been placed on this earlier this year for LE edema but that he has also noticed increased abdominal fullness/pants fitting tighter. No on PO Kcl supplementation with his lasix at home, discussed monitoring/replacement and will schedule IV BID lasix for now but if coming up with good regimen/labs stable could potentially d/c tomorrow on regimen w/ close follow up on labs/CHF clinic. He does not note having any education on low salt diet -- discussed and enco uraged closer monitoring as weights appear higher than they did when placed on the lasix, likely from holidays/dietary indiscretion. No fever/chills, chest pain, no nausea or vomiting. Questions/concerns addressed at this time. Review of Systems Review of Systems: All systems reviewed & are unremarkable except as noted in HPI & below Physical Exam Physical Exam: General: WD/WN male sitting up in bed changing his socks, NAD HEENT: head normocephalic, atraumatic, mmm, trachea midline, +JVD Resp: CTAB, diminished in the bases, no w/c, on room air CV: irregularly irregular (rates 70-90s), +murmur, 2+ pitting edema b/l LE, pulses palpable, calves nontender GI: +BS, +distended, +ascites, nontender, no guarding/rigidity : no wilkes MSK/Neuro: no focal deficit, no slurred speech or facial droop, follows commands Psych: AOx3, pleasant and cooperative Skin: warm, dry, chronic venous stasis b/l LE Results & Data Results & Data ([facility]) Vital Signs (Past 12 Hours) Vital Signs Temp Pulse Pulse Resp BP Pulse Ox O2 Del Method 11/08/22 07:31 36.8 C 80 18 119/67 92 Room Air 11/08/22 03:32 36.8 C 71 18 121/79 97 Room Air 11/07/22 22:50 101 H 11/07/22 22:25 36.6 C 72 18 121/95 97 Room Air Laboratory Results 11/08/22 11/08/22 11/08/22 Range/Units 06:29 06:29 06:29 WBC 8.40 (4.8-10.8) K/ul RBC 4.14 L (4.63-6.08) M/uL Hgb 13.2 L (14.0-18.0) g/dl Hct 37.3 L (40.1-51.0) % MCV 90.1 (80.0-100.0) fL MCH 31.9 (25.0-34.0) pg MCHC 35.4 (32.0-36.0) g/dL RDW Std Deviation 44.2 (36.4-46.3) fL RDW Coeff of Nolberto 13.3 (11.5-14.5) % Plt Count 157 (130-400) K/uL MPV 11.0 (9.4-12.4) fL Immature Gran % (Auto) % Neut % (Auto) % Lymph % (Auto) % [place] % (Auto) % Eos % (Auto) % Baso % (Auto) % Neut # (Auto) (1.4-6.5) K/uL Lymph # (Auto) (1.2-3.4) K/uL [place] # (Auto) (0.24-0.82) K/uL Eos # (Auto) (0-0.50) K/uL Baso # (Auto) (0-0.2) K/uL Immature Gran # (Auto) (0.00-0.02) K/uL PT 14.2 H (9.0-12.0) Seconds INR 1.4 H (0.9-1.1) APTT (21.0-31.0) Seconds PTT Ratio Sodium 133 L (136-145) mmol/L Potassium 3.3 L (3.5-5.1) mmol/L Chloride 94 L (98-107) mmol/L Carbon Dioxide 29 (21-32) mmol/L Anion Gap 10 (3-11) BUN 10 (6-23) mg/dl Creatinine 0.71 (0.6-1.4) mg/dl Est Cr Clr Drug Dosing 115.9 ml/min Est GFR ( Amer) 117.4 ml/min Est GFR (Non-Af Amer) 101.3 ml/min BUN/Creatinine Ratio 14.1 (10-20) Glucose 91 (70-99(Fasting)) mg/dl Calcium 8.7 (8.5-10.1) mg/dl Magnesium 1.7 (1.7-2.4) mg/dl Total Bilirubin 2.2 H (0.2-1.0) mg/dl AST 45 H (13-39) U/L ALT 27 (7-52) U/L Alkaline Phosphatase 112 H (34-104) U/L Troponin I High Sens 27.8 H (0-20) pg/ml B-Natriuretic Peptide (0-100) pg/ml Total Protein 6.5 (6.0-8.3) gm/dl Albumin 4.2 (3.4-5.0) gm/dl Globulin 2.3 L (2.5-4.0) gm/dl Albumin/Globulin Ratio 1.8 (0.9-2) SARS-CoV-2, RNA, NAAT (NEGATIVE) 11/07/22 11/07/22 11/07/22 Range/Units 21:37 16:11 14:35 WBC (4.8-10.8) K/ul RBC (4.63-6.08) M/uL Hgb (14.0-18.0) g/dl Hct (40.1-51.0) % MCV (80.0-100.0) fL MCH (25.0-34.0) pg MCHC (32.0-36.0) g/dL RDW Std Deviation (36.4-46.3) fL RDW Coeff of Nolberto (11.5-14.5) % Plt Count (130-400) K/uL MPV (9.4-12.4) fL Immature Gran % (Auto) % Neut % (Auto) % Lymph % (Auto) % [place] % (Auto) % Eos % (Auto) % Baso % (Auto) % Neut # (Auto) (1.4-6.5) K/uL Lymph # (Auto) (1.2-3.4) K/uL [place] # (Auto) (0.24-0.82) K/uL Eos # (Auto) (0-0.50) K/uL Baso # (Auto) (0-0.2) K/uL Immature Gran # (Auto) (0.00-0.02) K/uL PT (9.0-12.0) Seconds INR (0.9-1.1) APTT (21.0-31.0) Seconds PTT Ratio Sodium (136-145) mmol/L Potassium (3.5-5.1) mmol/L Chloride (98-107) mmol/L Carbon Dioxide (21-32) mmol/L Anion Gap (3-11) BUN (6-23) mg/dl Creatinine (0.6-1.4) mg/dl Est Cr Clr Drug Dosing ml/min Est GFR ( Amer) ml/min Est GFR (Non-Af Amer) ml/min BUN/Creatinine Ratio (10-20) Glucose (70-99(Fasting)) mg/dl Calcium (8.5-10.1) mg/dl Magnesium (1.7-2.4) mg/dl Total Bilirubin (0.2-1.0) mg/dl AST (13-39) U/L ALT (7-52) U/L Alkaline Phosphatase (34-104) U/L Troponin I High Sens 26.5 H (0-20) pg/ml B-Natriuretic Peptide 531 H (0-100) pg/ml Total Protein (6.0-8.3) gm/dl Albumin (3.4-5.0) gm/dl Globulin (2.5-4.0) gm/dl Albumin/Globulin Ratio (0.9-2) SARS-CoV-2, RNA, NAAT NEGATIVE (NEGATIVE) 11/07/22 11/07/22 11/07/22 Range/Units 13:27 13:27 13:27 WBC (4.8-10.8) K/ul RBC (4.63-6.08) M/uL Hgb (14.0-18.0) g/dl Hct (40.1-51.0) % MCV (80.0-100.0) fL MCH (25.0-34.0) pg MCHC (32.0-36.0) g/dL RDW Std Deviation (36.4-46.3) fL RDW Coeff of Nolberto (11.5-14.5) % Plt Count (130-400) K/uL MPV (9.4-12.4) fL Immature Gran % (Auto) % Neut % (Auto) % Lymph % (Auto) % [place] % (Auto) % Eos % (Auto) % Baso % (Auto) % Neut # (Auto) (1.4-6.5) K/uL Lymph # (Auto) (1.2-3.4) K/uL [place] # (Auto) (0.24-0.82) K/uL Eos # (Auto) (0-0.50) K/uL Baso # (Auto) (0-0.2) K/uL Immature Gran # (Auto) (0.00-0.02) K/uL PT 15.2 H (9.0-12.0) Seconds INR 1.5 H (0.9-1.1) APTT 35.6 H (21.0-31.0) Seconds PTT Ratio 1.3 Sodium 131 L (136-145) mmol/L Potassium 4.0 (3.5-5.1) mmol/L Chloride 93 L (98-107) mmol/L Carbon Dioxide 30 (21-32) mmol/L Anion Gap 8 (3-11) BUN 10 (6-23) mg/dl Creatinine 0.78 (0.6-1.4) mg/dl Est Cr Clr Drug Dosing 107.4 ml/min Est GFR ( Amer) 112.9 ml/min Est GFR (Non-Af Amer) 97.4 ml/min BUN/Creatinine Ratio 12.8 (10-20) Glucose 99 (70-99(Fasting)) mg/dl Calcium 9.4 (8.5-10.1) mg/dl Magnesium 1.8 (1.7-2.4) mg/dl Total Bilirubin 2.7 H (0.2-1.0) mg/dl AST 47 H (13-39) U/L ALT 29 (7-52) U/L Alkaline Phosphatase 118 H (34-104) U/L Troponin I High Sens 24.0 H (0-20) pg/ml B-Natriuretic Peptide (0-100) pg/ml Total Protein 7.0 (6.0-8.3) gm/dl Albumin 4.5 (3.4-5.0) gm/dl Globulin 2.5 (2.5-4.0) gm/dl Albumin/Globulin Ratio 1.8 (0.9-2) SARS-CoV-2, RNA, NAAT (NEGATIVE) 11/07/22 Range/Units 13:27 WBC 8.44 (4.8-10.8) K/ul RBC 4.38 L (4.63-6.08) M/uL Hgb 13.9 L (14.0-18.0) g/dl Hct 40.7 (40.1-51.0) % MCV 92.9 (80.0-100.0) fL MCH 31.7 (25.0-34.0) pg MCHC 34.2 (32.0-36.0) g/dL RDW Std Deviation 45.5 (36.4-46.3) fL RDW Coeff of Nolberto 13.4 (11.5-14.5) % Plt Count 169 (130-400) K/uL MPV 10.7 (9.4-12.4) fL Immature Gran % (Auto) 0.5 % Neut % (Auto) 81.4 % Lymph % (Auto) 9.0 % [place] % (Auto) 8.5 % Eos % (Auto) 0.1 % Baso % (Auto) 0.5 % Neut # (Auto) 6.87 H (1.4-6.5) K/uL Lymph # (Auto) 0.76 L (1.2-3.4) K/uL [place] # (Auto) 0.72 (0.24-0.82) K/uL Eos # (Auto) 0.01 (0-0.50) K/uL Baso # (Auto) 0.04 (0-0.2) K/uL Immature Gran # (Auto) 0.04 H (0.00-0.02) K/uL PT (9.0-12.0) Seconds INR (0.9-1.1) APTT (21.0-31.0) Seconds PTT Ratio Sodium (136-145) mmol/L Potassium (3.5-5.1) mmol/L Chloride (98-107) mmol/L Carbon Dioxide (21-32) mmol/L Anion Gap (3-11) BUN (6-23) mg/dl Creatinine (0.6-1.4) mg/dl Est Cr Clr Drug Dosing ml/min Est GFR ( Amer) ml/min Est GFR (Non-Af Amer) ml/min BUN/Creatinine Ratio (10-20) Glucose (70-99(Fasting)) mg/dl Calcium (8.5-10.1) mg/dl Magnesium (1.7-2.4) mg/dl Total Bilirubin (0.2-1.0) mg/dl AST (13-39) U/L ALT (7-52) U/L Alkaline Phosphatase (34-104) U/L Troponin I High Sens (0-20) pg/ml B-Natriuretic Peptide (0-100) pg/ml Total Protein (6.0-8.3) gm/dl Albumin (3.4-5.0) gm/dl Globulin (2.5-4.0) gm/dl Albumin/Globulin Ratio (0.9-2) SARS-CoV-2, RNA, NAAT (NEGATIVE) Diagnostic Findings Chest X-Ray 11/07/22 13:18 XR chest 1V not portable CLINICAL HISTORY: SOB TECHNIQUE: Single frontal radiograph of the chest was obtained. Comparison: Comparison is made to chest radiograph 08/26/2022 FINDINGS: No lines and tubes are seen. Cardiomegaly is noted. The lungs are clear. No evidence of pleural effusion or pneumothorax. IMPRESSION: No acute abnormalities and in particular no evidence of pneumonia. ACT 112: Negative or not required by law. Electronically signed by: Eduar Mcelroy M.D. 11/07/2022 2:07 PM 11/08/22 ECHOCARDIOGRAM LV is normal in size. There is mild concentric LVH. LV systolic function is low normal. EF 50-55%. LV wall morion is normal. Flattened septum consistent with RV pressure overload. RV is severely dilated. Although TAPSE is normal, RV free wall appears hypokinetic. LA/RA severely dilated. Aortic valve sclerosis mild, without significant aortic valvular stenosis. Mild to moderate AR. Mod TR. Severe pulmonary HTN with estimated pulmonary artery pressure 65mmHg. PG Care Time/CCT Total # of Minutes Spent Total Time Spent with Patient: Total time spent is greater than 50% in coordination of care (as documented) at patient's floor/unit and/or counseling patient: Coding Level of Care Code 10864 Subseq Hosp Care Lvl 3 Diagnoses Elevated troponin R77.8 Swelling of lower extremity M79.89 Atrial fibrillation I48.91 History of TIA (transient ischemic attack) Z86.73 Alcohol ingestion, more than 4 drinks/day Z78.9
[2022-11-08] MEDS ORDERED: POTASSIUM CHLORIDE CRTAB 20 MEQ TABCR PO STA (08:08)
[2022-11-08] MEDS ORDERED: FUROSEMIDE INJ 20 MG/2 ML VIAL IV ONE (08:08)
[2022-11-08] MEDS ORDERED: MAGNESIUM SULFATE / D5W 1 GM/100 ML BAG IV ONE (08:08)
[2022-11-08] MEDS ORDERED: ASPIRIN 81 MG CHEW PO SCH (09:00)
[2022-11-08 09:06] LABS: Iron 52 mcg/dl (35-175); Total Iron Binding Cap Calc 379 mcg/dl (250-450); Transferrin (FE) Percent Satur 14 % (20-50); Unsaturated Iron Binding Cap 327 mcg/dl (155-355)
--- NOTE | 2022-11-08 09:11 | CT Scan Report ---
CT abd pelvis oral and IV con CLINICAL HISTORY: eval ascites, le swelling hepatic veins TECHNIQUE: Helical axial images of the abdomen and pelvis were obtained and displayed. Automated dose lowering techniques and/or adjustment according to patient size were utilized for this exam. This e xam was performed with intravenous contrast. CT DOSE: 512.87 mGy.cm COMPARISON: None available at the time of this dictation. FINDINGS: Lower chest: Right pleural effusion is seen. Interstitial septal thickening is partially visualized. Liver: Subcentimeter hypodensities in the liver are too small to characterize. There is moderately no dular contour of the liver. Gallbladder and biliary tree: No calcified gallstones. Normal caliber wall. No intra- or extrahepatic biliary ductal dilation. Pancreas: Unremarkable, no focal lesions. Spleen: Unremarkable. Adrenals: Unremarkable. Kidneys and ureters: Subcentimeter hypodensities are too small to characterize. Bladder: Unremarkable. Reproductive organs: Unremarkable. Bowel: Unremarkable appearance of the bowel. The appendix is normal. Lymph nodes Retroperitoneal: Unremarkable. Pelvic: Unremarkable. Mesenteric: Unremarkable. Peritoneum: Moderate ascites is seen. Vessels: Atherosclerotic calcifications are seen. Portal vein is patent. Abdominal wall: Left fat containing inguinal hernia. Mild body wall edema is seen. Bones: There is grade 2 anterolisthesis of L4-L5 with associated pars defects. IMPRESSION: Moderately nodular contour of the liver compatible with cirrhosis. Moderate ascites is seen. The port al vein remains patent and no prominent variceal disease is seen. ACT 112: Negative or not required by law. Electronically signed by: Eduar Mcelroy M.D. 11/08/2022 9:10 AM
--- NOTE | 2022-11-08 11:01 | Electrocardiogram Report ---
Test Reason : Blood Pressure : / mmHG Vent. Rate : 071 BPM Atrial Rate : 077 BPM P-R Int : 000 ms QRS Dur : 102 ms QT Int : 436 ms P-R-T Axes : 000 -58 184 degrees QTc Int : 473 ms Atrial fibrillation Low voltage QRS Left anterior fascicular block Prolonged QT Abnormal ECG When compared with ECG of 07-NOV-2022 13:21, (unconfirmed) No significant change was found Confirmed by Jerad Arzate ([id number]) on 11/08/2022 11:00:45 AM Referred By: REFERRED SELF Confirmed By:Jerad Arzate
--- NOTE | 2022-11-08 12:21 | Cardiology Consultation ---
Date of Consultation November 08, 2022 History of Present Illness Reason for Consultation: Right-sided heart failure, severe pulmonary hypertension Requesting Physician: Patient's primary warehouse team member is Aristides Canseco Attending Physician: Karolyn Frausto MD History of Present Illness Patient noticed over the last 3 weeks or so increasing abdominal distention and abdominal fullness. He also had worsening of his chronic lower extremity edema up into his thighs. He also noted that his appetite was poor but he was still gaining weight. He was having progressive dyspnea at home noting that even putting on his shoes and socks would cause him to get short of breath. He is also had this chronic sinus headache and cough with yellowish sputum. He denies any fevers chills or sweats. He denies any lightheadedness or dizziness. Denies any chest tightness or chest pressure. He is unaware of his atrial fibrillation and never feels palpitations he has been on chronic anticoagulation without any complications. He does snore but he notes no ones ever told him that he snores loud enough that they want to sleep in another room. He has never been tested for sleep apnea. There is no personal history of DVT or pulmonary emboli. He does have lower extremity varicosities. In the hospital he started to diurese. his abdominal distention is improving. He also notes that his dyspnea and appetite are improving as well. The rest of a complete her systems otherwise negative Allergies Allergy/AdvReac Type Severity Reaction Status Date / Time No Known Allergies Allergy Verified 11/07/22 16:32 Home Medications Medication Instructions Recorded Confirmed Type cholecalciferol (vitamin D3) 125 125 mcg PO QAM 07/31/20 11/07/22 History mcg (5,000 unit) tablet (Vitamin D3) krill oil 500 mg capsule 500 mg PO QAM 07/31/20 11/07/22 History Prostate Supplement 2 tabs PO HS 01/02/22 11/07/22 History furosemide 20 mg tablet 20 mg PO QAM PRN Edema #30 tabs 08/19/22 11/07/22 Rx apixaban 5 mg tablet (Eliquis) 5 mg PO BID 11/07/22 11/07/22 History Patient History Medical History Atrial fibrillation on eliquis -- follows with Dr. Canseco History of COVID-19 09/2020, not tested; loss taste/smell, fatigue>resolved. History of inguinal hernia left History of umbilical hernia Stroke "MILD STROKE" 10 YEARS AGO - no residual effects Surgical History H/O umbilical hernia repair (08/26/22) p Open Left Inguinal Hernia Repair with Mesh - Porfirio Pierre DO s Open Umbilical Hernia Repair - Porfirio Pierre DO History of colonoscopy History of herniorrhaphy ABDOMINAL HERNIA Hx of LASIK S/P left inguinal hernia repair (08/26/22) p Open Left Inguinal Hernia Repair with Mesh - Porfirio Pierre DO s Open Umbilical Hernia Repair - Porfirio Pierre DO Family History Father Myocardial infarction Cancer Colorectal cancer Mother Diabetes Family history of diabetes mellitus Denies family history of Ovarian cancer Prostate cancer Breast cancer Social History Smoking Status: Former smoker Tobacco Type: Cigarettes Cigarettes Per Day: 3-4 per day; Second Hand Exposure: No; Hx Alcohol Use: Yes Alcohol type: beer Alcohol Intake Frequency: 4 or More x per/Week Alcohol Intake Frequency Comment: 3/day Hx Substance Use: No Preferred Language: Bhutanese Communication Ability: Effective Business Planning Director Required: No Beliefs That Will Affect Care: None marital status: Current Living Situation: Spouse current occupational status: employed current occupation: [employer] How many Children do You have: 1 Feels Safe at Home: Yes caffeine: No Dental Care, Regularly: Yes Physical Activity Frequency: 1-2 Times per Week Seatbelt Use: always Sunscreen Use: No Assistive Devices: Glasses Results & Data ([facility]) Vital Signs (Past 12 Hours) Vital Signs Temp Pulse Pulse Resp BP Pulse Ox O2 Del Method 11/08/22 10:07 89 11/08/22 09:56 Room Air 11/08/22 07:31 36.8 C 80 18 119/67 92 Room Air 11/08/22 03:32 36.8 C 71 18 121/79 97 Room Air he is awake alert and oriented x3 he did not appear short of breath talking in sentences HEENT: His external jugular veins appeared elevated. Other upstrokes were mildly reduced Lungs: Decreased breath sounds in the bases bilaterally no rales rhonchi or wheezing Heart: Irregular rate and rhythm no appreciable murmurs or rubs Abdomen: Firm nontender distended positive bowel sounds Extremities: He has moderate pitting edema to the knees bilaterally; his thigh edema has improved Psychiatric: His affect appeared appropriate IMPRESSIONS: 1. Acute on chronic right-sided heart failure 2. Severe pulmonary hypertension etiologies include untreated obstructive sleep apnea and diastolic dysfunction; he has never had a work-up for pulmonary embolism but has been down on anticoagulation and compliant with it 3. Chronic atrial fibrillation for rate control 4. History of TIA 5. Cirrhosis seen on his CAT scan with significant alcohol consumption upwards of 4 drinks daily 6. His elevated LFTs, BNP, highly sensitive troponin are likely related to his heart failure Recommendations: 1. for completeness sake he should have an autoimmune work-up including rheumatoid factor and an JASIEL screen and a sed rate 2. He will need an outpatient sleep study 3. We will add Aldactone 25 mg to his medical regiment. He remains on Lasix 20 mg IV twice daily. He does not appear excessively prerenal. 4 have to watch for worsening hyponatremia. This is likely a combination of alcohol and heart failure. 5. We did discuss a low-salt diet and daily weights. He is going to need heart failure education and should have a nutrition consult.
[2022-11-08] MEDS: APIXABAN 5 MG TABLET PO SCH ×2 (12:45→19:49)
[2022-11-08] MEDS: SPIRONOLACTONE 25 MG TAB PO SCH (13:00)
[2022-11-08] MEDS: FUROSEMIDE INJ 20 MG/2 ML VIAL IV SCH (16:34)
[2022-11-08] MEDS ORDERED: BENZONATATE 100 MG CAPSULE PO PRN (19:34)
[2022-11-08] MEDS: POTASSIUM CHLORIDE CRTAB 20 MEQ TABCR PO SCH (19:49)
[2022-11-08] MEDS ORDERED: SODIUM CHLORIDE 0.65% NA SOLN 45 ML (OCEAN) PRN (22:43)
[2022-11-09 06:30] LABS: Hematocrit (blood only) 37.5 % (40.1-51.0); Hemoglobin 13.2 g/dl (14.0-18.0); Mean Corpuscular Hemoglobin 31.5 pg (25.0-34.0); Mean Corpuscular Hgb Conc 35.2 g/dL (32.0-36.0); Mean Corpuscular Volume 89.5 fL (80.0-100.0); Mean Platelet Volume 11.3 fL (9.4-12.4); Platelet Count 152 K/uL (130-400); RDW Coefficient of Variation 13.3 % (11.5-14.5); RDW Standard Deviation 43.9 fL (36.4-46.3); Red Blood Count 4.19 M/uL (4.63-6.08); White Blood Count 7.13 K/ul (4.8-10.8)
[2022-11-09 06:47] LABS: INR 1.3 (0.9-1.1)
[2022-11-09 06:54] LABS: Albumin Globulin Ratio 1.9 (0.9-2); Albumin Level 4.1 gm/dl (3.4-5.0); BUN Creatinine Ratio 16.4 (10-20); Bilirubin,Total 1.6 mg/dl (0.2-1.0); Calcium 8.7 mg/dl (8.5-10.1); Creatinine Clr Calc Pharmacy 123.1 ml/min; Est GFR (African American) 120.2 ml/min; Est GFR (Non-African American) 103.7 ml/min; Globulin 2.2 gm/dl (2.5-4.0); Magnesium 1.9 mg/dl (1.7-2.4); Potassium 3.7 mmol/L (3.5-5.1); Total Protein 6.3 gm/dl (6.0-8.3)
[2022-11-09] MEDS: POTASSIUM CHLORIDE CRTAB 20 MEQ TABCR PO SCH ×2 (08:25→20:36)
[2022-11-09] MEDS: APIXABAN 5 MG TABLET PO SCH ×2 (08:25→21:02)
[2022-11-09] MEDS: SPIRONOLACTONE 25 MG TAB PO SCH (08:25)
[2022-11-09] MEDS: THIAMINE HCL 100 MG TAB PO SCH (08:26)
[2022-11-09] MEDS: FUROSEMIDE INJ 20 MG/2 ML VIAL IV SCH (08:26)
[2022-11-09] MEDS: CHOLECALCIFEROL 5,000 UNITS 125 MCG TAB PO SCH (08:26)
[2022-11-09] MEDS: ASPIRIN 81 MG ECTAB PO SCH (08:26)
--- NOTE | 2022-11-09 13:14 | Cardiology Progress Note ---
Date of Service November 09, 2022 Assessment & Plan Admission and Anticipated Discharge Date Admission Date: November 07, 2022 Subjective Feeling less short of breath with less abdominal distention. Denies any chest pain just pressure chest heaviness he has any palpitations lightheadedness or dizziness. He still has lower extremity edema up into his thighs. Additionally he still has increased abdominal distention. Results & Data ([facility]) Vital Signs (Past 12 Hours) Vital Signs Temp Pulse Pulse Pulse Resp BP Pulse Ox 11/09/22 12:37 36.8 C 84 18 120/78 94 11/09/22 11:08 11/09/22 11:06 53 L 11/09/22 08:02 36.8 C 67 14 109/64 97 11/09/22 05:15 78 11/09/22 03:02 74 11/09/22 02:43 36.8 C 78 16 111/73 92 Pulse Ox O2 Del Method O2 Del Method FiO2 11/09/22 12:37 Room Air 11/09/22 11:08 Room Air 11/09/22 11:06 11/09/22 08:02 Room Air 11/09/22 05:15 89 L Room Air 21 11/09/22 03:02 92 Room Air 21 11/09/22 02:43 Room Air he is awake alert and oriented x3 he did not appear short of breath talking in sentences HEENT: His external jugular veins appeared elevated. Other upstrokes were mildly reduced Lungs: Decreased breath sounds in the bases bilaterally no rales rhonchi or wheezing Heart: Irregular rate and rhythm no appreciable murmurs or rubs Abdomen: Firm nontender distended positive bowel sounds Extremities: He has moderate pitting edema to the knees bilaterally; his thigh edema has improved Psychiatric: His affect appeared appropriate IMPRESSIONS: 1. Acute on chronic right-sided heart failure 2. Severe pulmonary hypertension etiologies include untreated obstructive sleep apnea and diastolic dysfunction; he has never had a work-up for pulmonary embolism but has been down on anticoagulation and compliant with it 3. Chronic atrial fibrillation for rate control 4. History of TIA 5. Cirrhosis seen on his CAT scan with significant alcohol consumption upwards of 4 drinks daily 6. His elevated LFTs, BNP, highly sensitive troponin are likely related to his heart failure Recommendations: 1. autoimmune work-up including rheumatoid factor and an JSAIEL screen and a sed rate is pending 2. He will need an outpatient sleep study --his overnight nocturnal pulse oximetry suggests he has significant hypoxemia with sleep and likely has significant obstructive sleep apnea 3. We will add Aldactone 25 mg to his medical regiment. 3b. Change his IV Lasix over to IV Bumex 1 mg twice daily to increase his diuresis 4 have to watch for worsening hyponatremia. This is likely a combination of alcohol and heart failure. 5. We did discuss a low-salt diet and daily weights. He is going to need heart failure education and should have a nutrition consult. [facility] will return tomorrow to continue his care. This was discussed with Dr. Casey at the bedside.
[2022-11-09] MEDS: BUMETANIDE 1 MG in SYRINGE 0 ML IV SCH ×2 (13:48→17:28)
--- NOTE | 2022-11-09 14:44 | Electrocardiogram Report ---
Test Reason : Blood Pressure : / mmHG Vent. Rate : 078 BPM Atrial Rate : 084 BPM P-R Int : 000 ms QRS Dur : 094 ms QT Int : 456 ms P-R-T Axes : 000 -31 186 degrees QTc Int : 519 ms Atrial fibrillation Left axis deviation Prolonged QT Abnormal ECG When compared with ECG of 08-NOV-2022 05:09, Left anterior fascicular block is no longer Present Confirmed by Jerad Arzate ([id number]) on 11/09/2022 2:44:26 PM Referred By: REFERRED SELF Confirmed By:Jerad Arzate
--- NOTE | 2022-11-09 19:45 | Hospitalist Progress Note ---
Date of Service November 09, 2022 Assessment & Plan (1) Acute on chronic right-sided congestive heart failure: Plan: echo this admission - LV is normal in size. There is mild concentric LVH. LV systolic function is low normal. EF 50-55%. LV wall motion is normal. Flattened septum consistent with RV pressure overload. RV is severely dilated. Although TAPSE is normal, RV free wall is hypokinetic. appreciate cardiology assistance changing lasix to bumex IV bid cont aldactone right heart disease - 2nd to untreated, longstanding, severe FOL?? other? 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 supportive care tessalon prn cough (6) Elevated troponin: Plan: 2nd to myocardial demand ischemia in setting of #1 no ACS (7) Swelling of lower extremity: Plan: 2nd to decompensated right-sided CHF as well as cirrhosis Cont diuresis - agree with change in loop diuretic from lasix to bumex Cont aldactone (8) Atrial fibrillation: Plan: rates controlled without AV mellisa agent cont Eliquis 5mg BID (9) History of TIA (transient ischemic attack): Plan: cont Eliquis 5mg BID cont aspirin 81mg daily both for secondary prevention (10) Alcohol ingestion, more than 4 drinks/day: Plan: patient understands importance of abstinence declines assistance for this cont thiamine supplementation (11) Hyponatremia: Plan: 2nd to volume overload cont diuresis daily BMP Plan DVT proph - eliquis BID patient not ready for d/c care d/w Dr Arzate, cardiology Admission and Anticipated Discharge Date Admission Date: November 07, 2022 Subjective tele overnight with rate controlled a.fib patient reports less dyspnea and less abd swelling and less LE edema [id number] continues with swelling in all of these locations he also reports 1+ weeks of hoarse voice, nasal congestion, cough no fever eating ok during the visit he was tearful discussing the cirrhosis he states he wants to abstain from alcohol I asked if he wanted help with the alcohol use - declined such we discussed his overnight oximetry study results - 60+ minutes of hypoxia during the night Review of Systems Review of Systems: gen - no fevers cv - no chest pain pulm - cough, congested, dyspnea GI - no pain, but bloated; no nausea or emesis Physical Exam Physical Exam: gen - pleasant, NAD, tearful HENT - hoarse voice, MMM neck - mild JVD heart - irregularly irregular, s1 s2, 2/6 systolic murmur LSB lungs - b/l basilar rales - mild; occasional wheeze abd - distended with fluid, BS+, NT ext - 2+ edema b/l legs to the thighs, pulses 2+ b/l psych - a/o x 3 Results & Data Results & Data ([facility]) Vital Signs (Past 12 Hours) Vital Signs Temp Pulse Pulse Resp BP Pulse Ox O2 Del Method 11/09/22 16:00 36.8 C 84 14 120/77 96 Room Air 11/09/22 12:37 36.8 C 84 18 120/78 94 Room Air 11/09/22 11:08 Room Air 11/09/22 11:06 53 L 11/09/22 08:02 36.8 C 67 14 109/64 97 Room Air Laboratory Results Laboratory Results - last 24 hr 11/09/22 11/09/22 11/09/22 05:46 05:46 05:46 WBC 7.13 RBC 4.19 L Hgb 13.2 L Hct 37.5 L MCV 89.5 MCH 31.5 MCHC 35.2 RDW Std Deviation 43.9 RDW Coeff of Nolberto 13.3 Plt Count 152 MPV 11.3 ESR PT 14.0 H INR 1.3 H Sodium 131 L Potassium 3.7 Chloride 94 L Carbon Dioxide 30 Anion Gap 7 BUN 11 Creatinine 0.67 Est Cr Clr Drug Dosing 123.1 Est GFR ( Amer) 120.2 Est GFR (Non-Af Amer) 103.7 BUN/Creatinine Ratio 16.4 Glucose 95 Calcium 8.7 Magnesium 1.9 Total Bilirubin 1.6 H AST 47 H ALT 28 Alkaline Phosphatase 105 H Total Protein 6.3 Albumin 4.1 Globulin 2.2 L Albumin/Globulin Ratio 1.9 Vitamin B12 Folate Rheumatoid Factor JASIEL Screen 11/09/22 11/09/22 11/09/22 05:46 05:46 05:46 WBC RBC Hgb Hct MCV MCH MCHC RDW Std Deviation RDW Coeff of Nolberto Plt Count MPV ESR 3 PT INR Sodium Potassium Chloride Carbon Dioxide Anion Gap BUN Creatinine Est Cr Clr Drug Dosing Est GFR ( Amer) Est GFR (Non-Af Amer) BUN/Creatinine Ratio Glucose Calcium Magnesium Total Bilirubin AST ALT Alkaline Phosphatase Total Protein Albumin Globulin Albumin/Globulin Ratio Vitamin B12 383 Folate 14.76 Rheumatoid Factor Pending JASIEL Screen Pending PG Care Time/CCT Total # of Minutes Spent Total Time Spent with Patient: Total time spent is greater than 50% in coordination of care (as documented) at patient's floor/unit and/or counseling patient: Coding Level of Care Code 32086 Subseq Hosp Care Lvl 2 Diagnoses Acute on chronic right-sided congestive heart failure I50.813 Cirrhosis K74.60 Nocturnal hypoxemia G47.34 Pulmonary hypertension I27.20 URI (upper respiratory infection) J06.9 Elevated troponin R77.8 Swelling of lower extremity M79.89 Atrial fibrillation I48.91 History of TIA (transient ischemic attack) Z86.73 Alcohol ingestion, more than 4 drinks/day Z78.9 Hyponatremia E87.1
[2022-11-10 07:14] LABS: BUN Creatinine Ratio 18.5 (10-20); Calcium 8.9 mg/dl (8.5-10.1); Creatinine Clr Calc Pharmacy 126.4 ml/min; Est GFR (African American) 121.7 ml/min; Magnesium 1.9 mg/dl (1.7-2.4); Potassium 3.8 mmol/L (3.5-5.1)
[2022-11-10] MEDS: SPIRONOLACTONE 25 MG TAB PO SCH (09:10)
[2022-11-10] MEDS: THIAMINE HCL 100 MG TAB PO SCH (09:10)
[2022-11-10] MEDS: ASPIRIN 81 MG ECTAB PO SCH (09:10)
[2022-11-10] MEDS: POTASSIUM CHLORIDE CRTAB 20 MEQ TABCR PO SCH (09:10)
[2022-11-10] MEDS: APIXABAN 5 MG TABLET PO SCH (09:11)
[2022-11-10] MEDS: BUMETANIDE 1 MG in SYRINGE 0 ML IV SCH (09:11)
[2022-11-10] MEDS: CHOLECALCIFEROL 5,000 UNITS 125 MCG TAB PO SCH (10:07)
[2022-11-10] MEDS ORDERED: SPIRONOLACTONE 25 MG TAB PO ONE (12:19)
--- NOTE | 2022-11-10 15:16 | Discharge Summary ---
Date of Service November 10, 2022 Admission HPI Per Admitting Provider [id number] presents to the ER for GORMAN and LE swelling . Patient has a history of A. fib, hyperlipidemia, recent hernia repair (09/06). He notes shortness of breath has been gradually getting worse since this past August. He has been on Lasix prn since this past January. He notes the swelling has been getting worse in the legs and is now up into his belly. He is getting slightly more short of breath. Denies any headache or change in vision. No chest pain. No belly pain but notes that he has swelling in his legs that has come up to his belly. No dysuria urgency or frequency. Notes he is eating and drinking normally. He has had a little bit of a less of an appetite since hernia surgery in August. In the ER he is found to have a troponin of 24 (normal is 20, and a proBNP of 500s normal 0-100 is given 40 of Lasix in the ER. Patient does not have heart failure changes on his chest x-ray his last echocardiogram did not have evidence of diastolic dysfunction or pulmonary hypertension. Viral testing negative in the ER Principal Diagnosis acute on chronic right sided CHF Discharge Exam gen - pleasant, NAD, tearful HENT - hoarse voice, MMM neck - mild JVD heart - irregularly irregular, s1 s2, 2/6 systolic murmur LSB lungs - b/l basilar rales - mild; occasional wheeze abd - distended with fluid, BS+, NT ext - 2+ edema b/l legs to the thighs, pulses 2+ b/l psych - a/o x 3 Discharge Data Allergies Allergy/AdvReac Type Severity Reaction Status Date / Time No Known Allergies Allergy Verified 11/14/22 11:57 Consultations 11/07/22 16:08 ED Decision to Admit Stat 11/08/22 11:12 Consult Cardiology Routine 11/08/22 11:24 [facility] Referral Routine Ordered Studies 11/07/22 19:24 CT Abd and Pelvis [CT abd pelvis oral and IV con] Routine Hospital Course (1) Acute on chronic right-sided congestive heart failure: echo this admission - LV is normal in size. There is mild concentric LVH. LV systolic function is low normal. EF 50-55%. LV wall motion is normal. Flattened septum consistent with RV pressure overload. RV is severely dilated. Although TAPSE is normal, RV free wall is hypokinetic. appreciate cardiology assistance changing lasix to bumex IV bid cont aldactone right heart disease - 2nd to untreated, longstanding, severe FLO?? other? WIll discharge on a combination of furosemide and spirinolactone 40/100 mg may need to titrate up. 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 supportive care tessalon prn cough (6) Elevated troponin: 2nd to myocardial demand ischemia in setting of #1 no ACS (7) Swelling of lower extremity: 2nd to decompensated right-sided CHF as well as cirrhosis Cont diuresis - agree with change in loop diuretic from lasix to bumex Cont aldactone (8) Atrial fibrillation: rates controlled without AV mellisa agent cont Eliquis 5mg BID (9) History of TIA (transient ischemic attack): cont Eliquis 5mg BID cont aspirin 81mg daily both for secondary prevention (10) Alcohol ingestion, more than 4 drinks/day: patient understands importance of abstinence declines assistance for this cont thiamine supplementation (11) Hyponatremia: 2nd to volume overload cont diuresis daily BMP Plan DVT proph - eliquis BID patient not ready for d/c care d/w Dr Arzate, cardiology Total Time Total Time Spent Total Time Spent (In Minutes): 35 Discharge Plan Discharge Items Patient Disposition: Home - Self-Care Reason For Visit: ELEVATED TROP, LE SWELLING Discharge Diagnosis: elevated trop Activity: Resume your previous activity Non-emergency contact: Primary Care Provider Call non-emergency contact if: you have any medication questions Follow-up/Referrals: Jerad Martinez DO [Primary Care Provider] - 11/18/22 10:30 am Snow Coreas PA-C [Physician Python Java Developer] - 11/14/22 10:30 am Diet: Low Sodium (2gm) Addtl Attending Provider Instructions: Recommend followup a college recruiter as soon as avaialble. Also recommend followup with your Compotype Operator within 2 weeks Will need to recheck your blood work on or Thursday, Call your Primary Care doctor if any of the following symptoms or problems start or get worse: * Shortness of breath or difficulty breathing * Wake up at night short of breath * Chest pain * Cough * Swelling of your hands, feet, or legs * More fatigued or tired with your normal activity * Palpitations - sudden fast heart beats WEIGHT * Weigh yourself every morning after using the bathroom. * Use the same scale. * Wear the same amount of clothing. * Write your weight down on a chart. * Call your Primary Care doctor if you gain more than 2-3 pounds in 1-2 days. MEDICATIONS * Use this discharge instruction sheet for medication instructions. * Take your medications at the time your doctor ordered. * Do not skip a dose of your medicines. * If you miss a dose of medicine, take it as soon as possible, but DO NOT DOUBLE A DOSE. * Read your medicine information when you get home. * Know all of the side effects of your medicine. If in doubt, ask your pharmacist * Call your Primary Care doctor's office if you have any side effects. * Be sure all of your doctors know what medicine and herbs you take (including cold, flu, and herbal medicine). Take the following with you to your follow-up doctor appointments: * Weight Chart * Medication List * List of questions Your cirrhosis diet will need to be tailored based on your overall health and individual needs, but there are some general dietary guidelines that often shape this eating plan:4 * Avoiding alcohol: Any amount is considered unsafe for anyone with cirrhosis, as it's a potential cause of more liver damageeven liver failure. Drinking can also contribute tomalnutrition and other health concerns. * Limiting fats:The body digests fats usingbile a yellow-green fluid made in the liver. When the liver is damaged, the production and supply of bile may be affected, leading to digestive symptoms.A liver that isnt working well has a hard time processing a high-fat meal. (Healthy fats can be included in moderation.) * Avoiding raw or undercooked meat/seafood:People with liver damage from cirrhosis have impaired immune function, meaning bacteria and viruses that these foods can harbor can lead to a potentially serious infection. Pending Studies at Discharge: No Stand-Alone Forms: [facility], Smoking Cessation Medications and DC Order Prescriptions: New spironolactone 100 mg Tablet 100 mg PO QAM Qty: 30 0RF thiamine HCl (vitamin B1) 100 mg Tablet 100 mg PO QAM Qty: 30 0RF Continued cholecalciferol (vitamin D3) [Vitamin D3] 125 mcg (5,000 unit) Tablet 125 mcg PO QAM krill oil 500 mg Capsule 500 mg PO QAM Eliquis 5 mg tablet 5 mg PO BID Discontinued furosemide 20 mg tablet 20 mg PO QAM PRN (Reason: Edema) Qty: 30 5RF Rx Instructions: PER PT "HAVE BEEN USING LATELY". No Action furosemide 40 mg tablet 80 mg PO QAM Discharge Orders: Discharge Order (Routine); Ordered 11/10/22 Ordered By: Tommie Hernandez Admission Data Admit Date/Time: 11/07/22 16:31 Attending Provider: Tommie Hernandez Admit Provider: Rogelio Rangel Primary Care Provider: Jerad Martinez Other Providers: Rogelio Rangel ; Aeln Sexton ; Snow Coreas Other Interventions: Discharge Summary Assessment (RN) Last Done: 11/10/22 14:11 Coding Level of Care Code D/C DAY MANAGEMENT >30 MINS Diagnoses Acute on chronic right-sided congestive heart failure I50.813 Cirrhosis K74.60 Nocturnal hypoxemia G47.34 Pulmonary hypertension I27.20 URI (upper respiratory infection) J06.9 Elevated troponin R77.8 Swelling of lower extremity M79.89 Atrial fibrillation I48.91 History of TIA (transient ischemic attack) Z86.73 Alcohol ingestion, more than 4 drinks/day Z78.9 Hyponatremia E87.1
[2022-11-11] MEDS ORDERED: SPIRONOLACTONE 100 MG TAB PO SCH (09:00)
[2022-11-12 12:32] LABS: Anti Nuclear Antibody Screen NEGATIVE (NEGATIVE); Rheumatoid Factor <14 IU/mL (<14)
== END 2022-11-10 16:14 | disposition home or self-care (01) | DRG 292 ==
LOC: ED 13:08 → SUATTDRO 16:31 → 2E 16:31